=== PATIENT | male | born 1960 | race African-American/Black ===

== ENCOUNTER 2018-12-25 21:15 | Emergency (ER) | payer SELFPAY, OTHER | END 2018-12-26 00:04 | disposition home or self-care (01) | LOC: ED 21:15 ==

== ENCOUNTER 2018-12-28 08:32 | Inpatient (IN) | payer BC ==
[~2018-12-28] VITALS: Ht 172.7 cm; Wt 83.0 kg
[2018-12-28 08:47] VITALS: Ht 172.7 cm; Wt 83.0 kg
[2018-12-28 10:17] LABS: PLATELET COUNT 158 x10^3mcL (130-400); RED CELL DISTRIBUTION WIDTH 13.3 % (11.5-14.5)
[2018-12-28 10:22] LABS: CARBON DIOXIDE 32.8 mmol/L (21-32); CHLORIDE SERUM 93 mmol/L (98-107); GFR1 > 60 mL/min; GLUCOSE SERUM 201 mg/dL (74-106); POTASSIUM SERUM 3.9 mmol/L (3.5-5.1); SODIUM SERUM 130 mmol/L (136-145)
[2018-12-28 10:35] LABS: ALBUMIN 2.9 g/dL (3.4-5.0); ALKALINE PHOSPHATASE 45 U/L (46-116); ALT/SGPT 30 U/L (16-63); AST/SGOT 17 U/L (15-37); BILIRUBIN TOTAL 0.8 mg/dL (0.20-1.00); LIPASE 295 IU/L (73-393); T4(THYROXINE) 8.1 ug/dL (4.7-13.3); TOTAL PROTEIN, SERUM 6.7 g/dL (6.4-8.2)
[2018-12-28 11:46] LABS: BAND NEUTROPHIL 21 % (0-10); BASOPHIL 0 % (0-2); MONOCYTE 26 % (0-7); SEGMENTED NEUTROPHILS 29 % (37-75)
[2018-12-28 11:47] LABS: PLATELET MORPHOLOGY PLATELETS NORMAL
[2018-12-28 12:06] LABS: AMPHETAMINE QUAL UR NONE DETECTED (See below)
[2018-12-28 12:19] LABS: UA SPECIFIC GRAVITY <=1.005 (1.005-1.035); microscopic required? YES; urine erythrocyte TRACE (NEGATIVE)
[2018-12-28] MEDS ORDERED: ASPIR 8181 MG PO (12:59)
[2018-12-28] MEDS ORDERED: METFORMIN HYDR500 M1 PO (13:00)
[2018-12-28] MEDS ORDERED: TRULICITY1.5 MG/0.5 SC (13:00)
[2018-12-28] MEDS ORDERED: NEURONTIN300 MG PO (13:01)
[2018-12-28] MEDS ORDERED: LIPI20 PO (13:01)
[2018-12-28] MEDS ORDERED: BENAZEPRIL HYDR20 M1 PO (13:02)
[2018-12-28 14:48] LABS: MAGNESIUM 2.1 mg/dL (1.8-2.4); PHOSPHOROUS 2.3 mg/dL (2.5-4.9)
[2018-12-28 15:27] VITALS: BP 116/72
[2018-12-28 19:35] VITALS: BP 124/83
[2018-12-29 05:48] VITALS: BP 105/71
[2018-12-29 06:14] VITALS: BP 156/74
[2018-12-29 07:02] LABS: BASOPHIL % 0.3 % (0-2); PLATELET COUNT 163 x10^3mcL (130-400)
[2018-12-29] MEDS ORDERED: LEVAQUIN750 MG PO (07:51)
[2018-12-29] MEDS ORDERED: FLA500 PO (07:53)
[2018-12-29] MEDS ORDERED: LAC PO (07:54)
[2018-12-29 08:07] VITALS: BP 114/73
[2018-12-29 08:50] LABS: CALCIUM 8.1 mg/dL (8.5-10.1); CARBON DIOXIDE 32.1 mmol/L (21-32); CHLORIDE SERUM 99 mmol/L (98-107); CREATININE SERUM 0.8 mg/dL (0.7-1.3); GFR1 > 60 mL/min; GLUCOSE SERUM 198 mg/dL (74-106); POTASSIUM SERUM 3.5 mmol/L (3.5-5.1); SODIUM SERUM 136 mmol/L (136-145)
[2018-12-29 16:50] VITALS: BP 108/69
[2018-12-29 21:14] VITALS: BP 108/71
[2018-12-30 04:57] VITALS: BP 108/72
[2018-12-30 08:30] VITALS: BP 116/68
[2018-12-30] MEDS ORDERED: LAC PO (14:29)
[2018-12-30] MEDS ORDERED: FLA500 PO (14:29)
[2018-12-30] MEDS ORDERED: LEVAQUIN750 MG PO (14:29)
[2018-12-30 14:34] VITALS: BP 116/68
== END 2018-12-30 15:01 | disposition home or self-care (01) | DRG 871 ==
LOC: ED 08:32 → MU 12:22
PROVIDERS: Emergency Medicine; ADMIT Family Medicine
DX: A41.9 Sepsis, unspecified organism (principal); N17.0 Acute kidney failure with tubular necrosis; A04.9 Bacterial intestinal infection, unspecified; E44.0 Moderate protein-calorie malnutrition; E87.1 Hypo-osmolality and hyponatremia; I10 Essential (primary) hypertension; E11.9 Type 2 diabetes mellitus without complications; F17.210 Nicotine dependence, cigarettes, uncomplicated; Z72.89 Other problems related to lifestyle; Z83.3 Family history of diabetes mellitus; Z82.49 Family history of ischemic heart disease and other diseases of the circulatory system; Z79.84 Long term (current) use of oral hypoglycemic drugs; Z71.6 Tobacco abuse counseling; Z68.23 Body mass index [BMI] 23.0-23.9, adult; E86.0 Dehydration
CPT/HCPCS: 82962; 87046; 87046-59; J0295; J1885; J1956; J2405; J3490; J7030; Q0092; Q9967

== ENCOUNTER 2019-05-23 10:36 | Emergency (ER) | payer BC ==
[~2019-05-23] VITALS: Ht 172.7 cm; Wt 73.0 kg
[~2019-05-23 10:36] MED LIST: ASPIR 8181 MG PO; BENAZEPRIL HYDR20 M1 PO; FLA500 PO; LAC PO; LEVAQUIN750 MG PO; LIPI20 PO; METFORMIN HYDR500 M1 PO; NEURONTIN300 MG PO; TRULICITY1.5 MG/0.5 SC
[2019-05-23 10:38] VITALS: Ht 172.7 cm; Wt 73.0 kg
[2019-05-23 11:25] LABS: CALCIUM 9.1 mg/dL (8.5-10.1); CHLORIDE SERUM 99 mmol/L (98-107); CREATININE SERUM 0.9 mg/dL (0.7-1.3); GFR1 > 60 mL/min; GLUCOSE SERUM 401 mg/dL (74-106); POTASSIUM SERUM 4.8 mmol/L (3.5-5.1); SODIUM SERUM 136 mmol/L (136-145)
[2019-05-23 11:29] LABS: ALBUMIN 3.6 g/dL (3.4-5.0); ALKALINE PHOSPHATASE 100 U/L (46-116); ALT/SGPT 21 U/L (16-63); AST/SGOT 10 U/L (15-37); BILIRUBIN TOTAL 0.57 mg/dL (0.20-1.00); TOTAL PROTEIN, SERUM 6.9 g/dL (6.4-8.2)
[2019-05-23 12:39] VITALS: BP 105/75
== END 2019-05-23 12:39 | disposition home or self-care (01) ==
LOC: ED 10:36
PROVIDERS: Emergency Medicine
DX: E11.65 Type 2 diabetes mellitus with hyperglycemia (principal); I10 Essential (primary) hypertension; E11.9 Type 2 diabetes mellitus without complications; E78.00 Pure hypercholesterolemia, unspecified; Z98.890 Other specified postprocedural states
CPT/HCPCS: 82962; J1815; J7030